=== PATIENT | male | born 2000 | race American Indian/Alaskan Native ===

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

== ENCOUNTER 2020-08-28 21:16 | Emergency (ER) | payer MEDICAID | END 2020-08-28 22:00 | disposition left against medical advice (07) | LOC: ED 21:16 | DX: S62.609A Fracture of unspecified phalanx of unspecified finger, initial encounter for closed fracture (principal); Z53.21 Procedure and treatment not carried out due to patient leaving prior to being seen by health care provider; X58.XXXA Exposure to other specified factors, initial encounter; Y93.89 Activity, other specified; Y92.89 Other specified places as the place of occurrence of the external cause; Y99.8 Other external cause status ==